=== PATIENT | male | born 1960 | race African-American/Black ===

== ENCOUNTER 2024-11-04 16:16 | Emergency (ER) | payer MEDICARE, MEDICAID ==
[~2024-11-04] VITALS: Ht 167.6 cm; Wt 68.0 kg
[2024-11-04 16:35] VITALS: O2SAT 100
[2024-11-04] MEDS: HYDRALAZINE HCL 25MG TABLET PO ONE (17:28)
[2024-11-04 17:36] LABS: BASOPHILS % 0.5 % (0.0-2.0); EOSINOPHILS % 1.9 % (0.0-5.0); HEMATOCRIT. 40.0 % (42.0-52.0); HEMOGLOBIN. 13.5 g/dL (14.0-18.0); LYMPHOCYTES % 20.0 % (20.0-50.0); MEAN PLATELET VOLUME 8.0 fl (7.4-10.4); MONOCYTES % 7.0 % (2.0-8.0); NEUTROPHILS % 70.6 % (40.0-76.0); PLATELET 254 x1000/uL (130-400); RED BLOOD CELL COUNT 4.83 mill/uL (4.7-6.1); RED CELL DISTRIBUTION WIDTH 17.9 % (11.6-14.6)
[2024-11-04 17:54] LABS: CREATININE 0.9 mg/dL (0.6-1.3); TROPONIN I HIGH SENSITIVITY 8 ng/L (3.0-53); UREA NITROGEN BLOOD 6 mg/dL (9-23)
[2024-11-04 17:56] LABS: ASPARTATE AMINOTRANSFERASE 89 IU/L (<34); BILIRUBIN DIRECT 0.2 mg/dL (<=3.0); BILIRUBIN TOTAL 0.7 mg/dL (0.1-1.0); PROTEIN TOTAL 8.4 g/dL (6.0-8.3)
[2024-11-04] MEDS ORDERED: CALCIUM GLUCONATE 1GM PREMIX 50 ML IV ONE (18:15)
[2024-11-04 18:20] VITALS: BP 189/97; PULSE 94; RESP 16; TEMP 37.2; O2SAT 98
== END 2024-11-04 18:31 | disposition left against medical advice (07) ==
LOC: ER 16:16 → CMPBEDREQ 11-05 10:21
DX: I10 Essential (primary) hypertension (principal); R51.9 Headache, unspecified
CPT/HCPCS: 36415; 71045; 80048; 80076; 84484; 85025; 93005; 99285